=== PATIENT | female | born 1990 | race Two or more races ===

== ENCOUNTER 2019-04-29 16:37 | Inpatient (IN) | payer OTHER ==
[~2019-04-29] VITALS: Ht 162.6 cm; Wt 78.5 kg
[2019-05-16] MEDS ORDERED: PRENATAL TABLE1 EAC1 PO (01:23)
[2019-05-16] MEDS ORDERED: FOLBEE PLUS CZ1 EACH PO (01:24)
[2019-05-16] MEDS ORDERED: ZANTAC 7575 MG PO (01:25)
== END 2019-05-19 17:35 | DRG 807 ==
LOC: LDR 05-16 00:26 → OB/GYN 05-16 14:28 → LDR 05-16 14:45 → OB/GYN 05-19 17:35
PROVIDERS: ADMIT Obstetrics & Gynecology
PROC: 10E0XZZ Delivery of Products of Conception, External Approach (ICD-10-PCS; principal; 2019-05-16)
PROC: 4A1HXCZ Monitoring of Products of Conception, Cardiac Rate, External Approach (ICD-10-PCS; 2019-05-16)
DX: O80 Encounter for full-term uncomplicated delivery (principal); Z37.0 Single live birth; Z3A.40 40 weeks gestation of pregnancy
CPT/HCPCS: 70496